=== PATIENT | female | born 1990 | race Caucasian/White ===

== ENCOUNTER 2019-07-12 22:48 | Emergency (ER) | payer OTHER ==
[~2019-07-12] VITALS: Ht 177.8 cm; Wt 74.8 kg
[2019-07-12] MEDS ORDERED: LEVOTHYROXINE125 MCG ORAL (22:55)
--- NOTE | 2019-07-12 22:59 | NUR ---
ED Nurse Note: Pt ambulated to ED from [facility], pt fell on L wrist, visably deformed, pt reports 8/10 pain, pt able to move fingers, denies numbness. ERMD at bedside
[2019-07-12 23:01] VITALS: BP 128/81
--- NOTE | 2019-07-12 23:07 | Emergency Room Report ---
History of Present Illness General Chief Complaint: Upper Extremity Injury Source: Patient Present Illness HPI 28-year-old female with no past medical history presents to the emergency room status post fall onto her left wrist. Patient was rollerskating nelly and reported slipping and breaking her fall with her outstretched hand on the left. Patient reports a cracking sound and then turning her wrist back into a proper location. She is reports pain since the incident 30 minutes ago. Pain is moderate in severity. She has not tried any ice or medications for the pain. She has no prior injuries in the past on that extremity. Patient is left -hand dominant Allergies: Coded Allergies: ACETAMINOPHEN (Verified Allergy, Unknown, 07/12/19) HYDROCODONE (Verified Allergy, Unknown, 07/12/19) Patient History Last Menstrual Period: 06/14/19 Now: No Nursing Documentation-[facility] Past Medical History: No History, Except For Hx Cancer: Yes - thyroid cancer Review of Systems Constitutional: Denies: chills, fever Respiratory: Denies: cough, shortness of breath Cardiovascular: Denies: chest pain, palpitations Gastrointestinal: Denies: diarrhea, vomiting Genitourinary: Denies: hematuria, pain Musculoskeletal: Denies: joint swelling Skin: Denies: rash, lesions Neurological: Denies: headache, dizziness Physical Exam Vital Signs Date Time Temp Pulse Resp B/P (MAP) Pulse Ox O2 Delivery O2 Flow Rate FiO2 07/12/19 22:51 99.7 80 18 128/81 (97) 98 Room Air Sp02 EP Interpretation: reviewed General Appearance: well appearing, no apparent distress, non-toxic Head: normocephalic, atraumatic Eyes: bilateral eye normal inspection ENT: hearing grossly normal, EOM grossly intact, moist mucus membranes Neck: supple Respiratory: lungs clear, normal breath sounds, no respiratory distress, speaking full sentences Cardiovascular #1: regular rate, rhythm, normal capillary refill Cardiovascular #2: 2+ radial (R), 2+ radial (L) Gastrointestinal: soft, non-distended Rectal: deferred Musculoskeletal: moves extm spontaneously, other - Tenderness over radial head with obvious deformity noted. No open wounds or skin changes. Full range of motion of all 5 digits, sensation intact distally and proximally. No signs of injury to the elbow or shoulder. Neurologic: grossly normal Psychiatric: mood/affect normal Skin: warm/dry, normal turgor Medical Decision Making Diagnostic Impression: Primary Impression: Traumatic closed fracture of distal end of left radius and ulna with minimal displacement ER Course 28-year-old female status post left wrist injury 30 minutes prior to arrival found to have obvious deformity on radial head. Differential includes fracture, sprain, dislocation. Will perform x-rays to evaluate and give ibuprofen for pain control at this time. Ice placed on injured aspect Other X-Ray Diagnostic Results Other X-Ray Diagnostic Results : X-Ray ordered: wrist and forearm # of Views/Limited Vs Complete: 3 View Indication: Swelling EP Interpretation: Yes Interpretation: other - Comminuted intra-articular distal radial fracture with mild angulation, and fracture of distal ulna and ulnar styloid fracture Last Vital Signs Date Time Temp Pulse Resp B/P (MAP) Pulse Ox O2 Delivery O2 Flow Rate FiO2 07/12/19 23:01 99.7 85 18 128/81 98 Room Air Reevaluation Impression Placed patient in splint for radial ulnar fracture. Patient tolerated procedure well patient to be discharged to follow-up with orthopedics. Disposition: HOME, SELF-CARE Condition: Stable Referrals: Orthopedic Urgent Care Patient Instructions: Cast or Splint Care, Wrist Fracture Additional Instructions: Please follow-up with orthopedic at urgent care listed above or a or orthopedic surgeon. In 5 to 7 days. Keep splint on and in term. Return to emergency room if you have decreased sensation to fingers, change in color or any new symptoms. Morro Molina M.D. Jul 12, 2019 23:07
--- NOTE | 2019-07-12 23:37 | Diagnostic Imaging Report ---
EXAM: XR Left Forearm, 2 Views CLINICAL HISTORY: FALL TECHNIQUE: Frontal and lateral views of the left forearm. COMPARISON: No relevant prior studies available. FINDINGS: Bones/joints: Fractures of the distal radius and ulna with intra- articular extension. The more proximal aspects of the forearm and the elbow are unremarkable in appearance. No dislocation. Soft tissues: Unremarkable. IMPRESSION: Fractures of the distal radius and ulna with intra-articular extension.
--- NOTE | 2019-07-12 23:39 | Diagnostic Imaging Report ---
EXAM: XR Left Wrist Complete, 3 or More Views CLINICAL HISTORY: FALL TECHNIQUE: Frontal, lateral and oblique views of the left wrist. COMPARISON: No relevant prior studies available. FINDINGS: Bones/joints: Comminuted intra-articular distal radial fracture with apex volar angulation. Nondisplaced predominantly transverse fracture of the distal ulna with an ulnar styloid fracture. Soft tissues: Unremarkable. No radiopaque foreign body. IMPRESSION: 1. Comminuted intra-articular distal radial fracture with apex volar angulation. 2. Fracture of the distal ulna with an ulnar styloid fracture.
--- NOTE | 2019-07-13 00:27 | NUR ---
ED Nurse Note: repeat xray at bedside
[2019-07-13 00:40] VITALS: BP 128/81
--- NOTE | 2019-07-13 00:40 | NUR ---
ER DISCHARGE NOTE: Patient is cleared to be discharged per ERMD, pt is aox4, on room air, with stable vital signs. pt was given dc instructions, pt was able to verbalize understanding, pt id band removed. pt is able to ambulate with steady gait. pt took all belongings. Pt L wrist placed in sugar tong splint, pt tolerated well.
--- NOTE | 2019-07-13 00:46 | Diagnostic Imaging Report ---
EXAM: XR Left Wrist, 2 Views CLINICAL HISTORY: FX TECHNIQUE: Frontal and lateral views of the left wrist. COMPARISON: 07/12/2019 FINDINGS: Bones/joints: Status post splinting of the distal radial and ulnar fractures with unchanged apex volar angulation at the radial fracture site. IMPRESSION: Status post splinting of the distal radial and ulnar fractures with unchanged alignment.
== END 2019-07-13 00:40 | disposition home or self-care (01) ==
LOC: EMR 23:14
DX: S52.572A Other intraarticular fracture of lower end of left radius, initial encounter for closed fracture (principal); S52.602A Unspecified fracture of lower end of left ulna, initial encounter for closed fracture; Y93.51 Activity, roller skating (inline) and skateboarding; Y92.9 Unspecified place or not applicable; Z85.850 Personal history of malignant neoplasm of thyroid; Z88.6 Allergy status to analgesic agent
CPT/HCPCS: 99284